=== PATIENT | female | born 1975 | race Hispanic/Latino ===

== ENCOUNTER 2017-05-27 10:10 | Emergency (ER) | payer SELFPAY ==
[2017-05-27] MEDS ORDERED: MECLIZINE HCL 25 MG TABLET ONE (10:40)
[2017-05-27 10:53] LABS: APPEARANCE,URINE Clear (CLEAR); BILIRUBIN,URINE Negative (NEGATIVE); COLOR,URINE Yellow (YELLOW); GLUCOSE, URINE (UA) Negative (NEGATIVE); KETONES,URINE Negative (NEGATIVE); LEUKOCYTE ESTERASE ,URINE Negative (NEGATIVE); NITRATE,URINE Negative (NEGATIVE); OCCULT BLOOD,URINE Negative (NEGATIVE); PH,URINE 5.5 (5.0-8.0); PROTEIN,URINE Negative (NEGATIVE); UROBILINOGEN,URINE 0.2 mg/dL (0.2-1.0)
[2017-05-27 11:01] LABS: BASOPHILS % (AUTO) 0.9 % (0.0-5.0); EOSINOPHILS % (AUTO) 1.9 % (0.0-8.0); HEMATOCRIT 43.6 % (36-48); LYMPHOCYTES % (AUTO) 20.3 % (21.0-51.0); MEAN CORPUSCULAR HEMOGLOBIN 27.7 pg (27.0-33.0); MEAN CORPUSCULAR HGB CONC 34.3 g/dL (32.0-36.0); MEAN CORPUSCULAR VOLUME 80.8 fL (79-99); MONOCYTES % (AUTO) 5.8 % (3.0-13.0); NEUTROPHILS % (AUTO) 71.1 % (40.0-77.0); PLATELET COUNT (AUTO) 249 K/uL (130-400); RED CELL DISTRIBUTION WIDTH 13.5 % (11.0-15.5); WHITE BLOOD COUNT (AUTO) 8.7 K/uL (4.8-10.8)
[2017-05-27 11:08] LABS: CREATININE 0.8 mg/dL (0.5-1.5); POTASSIUM 3.8 mmol/L (3.5-5.1)
[2017-05-27 11:23] LABS: THYROID STIMULATING HORMONE 3.93 uIU/mL (0.36-3.74)
== END 2017-05-27 12:07 | disposition home or self-care (01) ==
LOC: EDH 10:10
DX: R42 Dizziness and giddiness (principal); E07.9 Disorder of thyroid, unspecified; R51 Headache
CPT/HCPCS: 36415; 80048; 81003; 84443; 84484; 85025; 87804; 93005

== ENCOUNTER 2019-02-09 14:16 | Emergency (ER) | payer SELFPAY ==
[2019-02-09] MEDS ORDERED: IBUPROFEN 600 MG TABLET ONE (15:24)
[2019-02-09] MEDS ORDERED: LIDOCAINE 5% TOPICAL PATCH TP ONE (15:24)
== END 2019-02-09 15:58 | disposition home or self-care (01) ==
LOC: EDH 14:16
DX: S46.311A Strain of muscle, fascia and tendon of triceps, right arm, initial encounter (principal); E07.9 Disorder of thyroid, unspecified; X50.1XXA Overexertion from prolonged static or awkward postures, initial encounter; Y93.89 Activity, other specified; Y92.89 Other specified places as the place of occurrence of the external cause; Y99.8 Other external cause status

== ENCOUNTER 2020-04-27 14:15 | Emergency (ER) | payer OTHER, SELFPAY ==
[2020-04-27] MEDS ORDERED: 0.9%NACL 1000ML 1,000 ML IV ONE (14:34)
[2020-04-27 14:50] LABS: BASOPHILS % (AUTO) 0.4 % (0.0-5.0); EOSINOPHILS % (AUTO) 0.3 % (0.0-8.0); HEMATOCRIT 45.6 % (36-48); MEAN CORPUSCULAR HEMOGLOBIN 26.7 pg (27.0-33.0); MEAN CORPUSCULAR HGB CONC 32.7 g/dL (32.0-36.0); MEAN CORPUSCULAR VOLUME 81.6 fL (79-99); MONOCYTES % (AUTO) 7.3 % (3.0-13.0); NEUTROPHILS % (AUTO) 72.7 % (40.0-77.0); PLATELET COUNT (AUTO) 190 K/uL (130-400); RED BLOOD CELL COUNT(AUTO) 5.59 MIL/uL (4.00-5.50); WHITE BLOOD COUNT (AUTO) 6.8 K/uL (4.8-10.8)
[2020-04-27] MEDS ORDERED: ACETAMINOPHEN WITH CODEINE 1 TAB TAB ONE (14:52)
[2020-04-27] MEDS ORDERED: KETOROLAC 30MG VIAL (30MG/ML) ONE (14:52)
[2020-04-27] MEDS ORDERED: METOCLOPRAMIDE 10 MG/2 ML VIAL ONE (14:52)
[2020-04-27 15:11] LABS: CREATININE 0.8 mg/dL (0.5-1.5); POTASSIUM 3.7 mmol/L (3.5-5.1)
[2020-04-27 15:16] LABS: ALBUMIN 3.4 g/dL (3.5-5.0); BILIRUBIN,TOTAL 0.4 mg/dL (0.2-1.0); TOTAL PROTEIN, SERUM 8.1 g/dL (6.0-8.3)
[2020-04-27] MEDS ORDERED: AZITHROMYCIN 250 MG TABLET PO ONE (16:14)
[2020-04-27] MEDS ORDERED: CEFTRIAXONE 1G VIAL ONE (16:14)
[2020-04-27 16:43] LABS: APPEARANCE,URINE Clear (CLEAR); BILIRUBIN,URINE Negative (NEGATIVE); COLOR,URINE Yellow (YELLOW); GLUCOSE, URINE (UA) Negative (NEGATIVE); KETONES,URINE >=80 mg/dL (NEGATIVE); LEUKOCYTE ESTERASE ,URINE Negative (NEGATIVE); NITRATE,URINE Negative (NEGATIVE); OCCULT BLOOD,URINE Negative (NEGATIVE); PROTEIN,URINE POS 1+ mg/dL (NEGATIVE)
[2020-04-27 16:45] LABS: HCG,QUAL RESULT NEGATIVE (NEGATIVE)
[2020-04-27 16:53] LABS: BACTERIA,URINE Few /HPF (None Seen); MUCUS,URINE Few LPF (None Seen); SQUAMOUS EPITHELIAL CELL,UR Few /HPF (0-2)
== END 2020-04-27 16:40 | disposition home or self-care (01) ==
LOC: EDH 14:15
DX: U07.1 COVID-19 (principal); J12.82 Pneumonia due to coronavirus disease 2019; R19.7 Diarrhea, unspecified; E11.9 Type 2 diabetes mellitus without complications; E07.9 Disorder of thyroid, unspecified
CPT/HCPCS: 36415; 71045; 80053; 81001; 81025; 85025; 96361; 96374; 96375; 99284; J0696; J1885; J2765; J7030

== ENCOUNTER 2022-02-20 08:22 | Emergency (ER) | payer OTHER ==
[~2022-02-20] VITALS: Ht 160 cm; Wt 93.0 kg
[2022-02-20] MEDS ORDERED: ACETAMINOPHEN 500 MG TABLET PO STA (08:34)
[2022-02-20] MEDS ORDERED: NAPR-1196 PO (10:25)
[2022-02-20] MEDS ORDERED: KETOROLAC 30MG VIAL (30MG/ML) IM ONE (10:30)
[2022-02-20 10:31] VITALS: BP 145/78
== END 2022-02-20 10:34 | disposition home or self-care (01) ==
LOC: EDH 08:22
DX: M54.50 Low back pain, unspecified (principal); M53.3 Sacrococcygeal disorders, not elsewhere classified; F41.9 Anxiety disorder, unspecified; E11.9 Type 2 diabetes mellitus without complications; E05.90 Thyrotoxicosis, unspecified without thyrotoxic crisis or storm; W18.39XA Other fall on same level, initial encounter; Y93.89 Activity, other specified; Y92.89 Other specified places as the place of occurrence of the external cause; Y99.8 Other external cause status
CPT/HCPCS: 99284; 81025; 72100; 72220; 96372; J1885